=== PATIENT | female | born 1990 | race Caucasian/White ===

== ENCOUNTER 2017-02-10 12:26 | Emergency (ER) | payer SELFPAY ==
[~2017-02-10] VITALS: Ht 157.5 cm; Wt 90.5 kg
[2017-02-10 12:39] VITALS: Ht 157.5 cm; Wt 90.5 kg
[2017-02-10] MEDS ORDERED: ACETAMINOPHEN 325 MG TAB PO STA (13:10)
[2017-02-10 14:00] LABS: ADD UMIC YES; UR ASCORBIC ACID NEGATIVE (NEGATIVE); UR BACTERIA FEW /HPF (NONE SEEN); UR BILIRUBIN (Dip) NEGATIVE (NEGATIVE); UR BLOOD (Dip) 2+ mg/dL (NEGATIVE); UR CLARITY TURBID (CLEAR); UR COLOR YELLOW (YELLOW); UR GLUCOSE (Dip) NEGATIVE (NEGATIVE); UR KETONES (Dip) NEGATIVE (NEGATIVE); UR LEUKOCYTE ESTERASE (Dip) 3+ Leu/ul (NEGATIVE); UR MUCUS FEW /HPF (NONE SEEN); UR NITRITE (Dip) NEGATIVE (NEGATIVE); UR RBC 83 /HPF (0-5); UR SPECIFIC GRAVITY (Dip) 1.024 (1.003-1.030); UR SQUAMOUS EPITHELIAL CELL FEW /HPF (FEW); UR TOTAL PROTEIN (Dip) 2+ mg/dl (NEGATIVE); UR UROBILINOGEN (Dip) NEGATIVE (NEGATIVE)
--- NOTE | 2017-02-10 14:26 | RADRPT ---
PROCEDURE: US Pelvis. CLINICAL INDICATION: Pelvic pain TECHNIQUE: Multiple sonographic images of the pelvis were obtained utilizing a transabdominal and endovaginal technique. The images were reviewed on a PACS workstation. COMPARISON: None available FINDINGS: Uterus: Normal in size, contour and echogenicity with no evidence for myometrial masses. Size is est imated at 7.5 x 3.3 x 4.0 cm. Cervix: No abnormalities of significance are seen. Endometrium: Normal in thickness; 8.3 mm. Right ovary / adnexa: Not visualized Left ovary/adnexa: Normal in size estimated at 2.2 x 2.2 x 2.9 cm. No evidence for solid masses, no rmal blood flow on Doppler interrogation. Cul-de-sac: No evidence of free fluid. RPTAT: HSM IMPRESSION: Right ovary not visualize. Otherwise, Unremarkable pelvic ultrasound. .Chandrakant Palma MD, Date Time Electronically viewed and signed by .Chandrakant Palma MD, on 02/10/2017 14:25 .M/
[2017-02-10] MEDS ORDERED: NITR-58 PO (14:29)
--- NOTE | 2017-02-10 14:36 | ERD ---
ER Documentation Chief Complaint Date/Time DATE: 02/10/17 TIME: 14:30 Chief Complaint lower mid-ap x 3 days, fever at home, denies n/v/d HPI Patient is a 26-year-old female with no past medical history who presents to the ED with suprapubic pain and pelvic pain and urinary urgency and frequency 3 days. Denies vaginal bleeding. Last menstrual period was 1 month ago. Denies dysuria. Denies fever or chills or back pain. Denies abdominal pain, nausea, vomiting or diarrhea. No other complaints. ROS All systems reviewed and are negative except as per history of present illness. Medications Home Meds Active Scripts Nitrofurantoin Monohyd Macrocr* (Macrobid*) 100 Mg Capsr, 100 MG PO BID for 5 Days, CAP Prov:BJORN NG PA-C 02/10/17 Allergies Allergies: Coded Allergies: No Known Allergy (Unverified , 02/10/17) PMhx/Soc History of Surgery: No Anesthesia Reaction: No Hx Neurological Disorder: No Hx Respiratory Disorders: No Hx Cardiac Disorders: No Hx Psychiatric Problems: No Hx Miscellaneous Medical Probl: No Hx Alcohol Use: Yes Hx Substance Use: No Hx Tobacco Use: Yes Smoking Status: Current every day smoker FmHx Family History: No coronary disease, No diabetes, No other Physical Exam Vitals Vital Signs Date Time Temp Pulse Resp B/P Pulse Ox O2 Delivery O2 Flow Rate FiO2 02/10/17 12:39 97.6 87 20 160/107 100 Physical Exam GENERAL: Well-developed, well-nourished female. Appears in no acute distress. HEAD: Normocephalic, atraumatic. EYES: Pupils are equally reactive bilaterally. EOMs grossly intact. No conjunctival erythema. ENT: Moist mucous membranes. No uvula deviation. No kissing tonsils. No exudates. NECK: Supple. No lymphadenopathy or thyromegaly. No meningismus. negative kernig. negative brudinski. LUNG: Clear to auscultation bilaterally. No rhonchi, wheezing, rales or coarse breath sounds. HEART: Regular rate and rhythm. No murmurs, rubs or gallops. ABDOMEN: No scars, ecchymosis or rashes noted. Soft, nontender, and nondistended. Positive bowel sounds in all four quadrants. No rebound tenderness , no guarding. (-) McBurneys point tenderness. No CVA tenderness. BACK: No midline tenderness. Extremities: Equal pulses bilaterally. No peripheral clubbing, cyanosis or edema. No unilateral leg swelling. NEUROLOGIC: Alert and oriented. Moving all four extremities. 5/5 strength in all extremities. Normal speech. Steady gait. SKIN: Normal color. Warm and dry. No rashes or lesions. Capillary refill < 2 seconds Results 24 hrs Laboratory Tests Test 02/10/17 13:25 Urine Color YELLOW Urine Clarity TURBID Urine pH 6.0 Urine Specific Industry 1.024 Urine Ketones NEGATIVEmg/dL Urine Nitrite NEGATIVEmg/dL Urine Bilirubin NEGATIVEmg/dL Urine Urobilinogen NEGATIVEmg/dL Urine Leukocyte Esterase 3+Alyssa/ul Urine Microscopic RBC 83/HPF Urine Microscopic WBC > 182/HPF Urine Squamous Epithelial Cells FEW/HPF Urine Bacteria FEW/HPF Urine Mucus FEW/HPF Urine Hemoglobin 2+mg/dL Urine Glucose NEGATIVEmg/dL Urine Total Protein 2+mg/dl Current Medications Medications (Trade) Dose Ordered Sig/Anurag Route PRN Reason Start Time Stop Time Status Last Admin Dose Admin Acetaminophen (Tylenol Tab) 650 mg ONCE STAT PO 02/10/17 13:10 02/10/17 13:12 DC 02/10/17 13:27 Procedures/MDM ER COURSE: I kept the patient and/or family informed of laboratory and diagnostic imaging results throughout the emergency room course. MEDICAL DECISION MAKING: This is a 26-year-old female who presents with suprapubic pain, urinary urgency 3 days. Vital signs were reviewed. Patient is afebrile. Patient is not hypoxic. Patient is nontoxic or ill-appearing. Her urine shows 3+ leukocytes with no nitrites. Pelvic ultrasound within normal limits. Patient has cystitis. Low suspicion for pyelonephritis, septic or obstructive stone, nephrolithiasis. Low suspicion for ovarian torsion, PID, tuboovarian abscess, ectopic , bowel obstruction, pyelonephritis, appendicitis, cervicitis , septic , molar , HELLP syndrome, preeclampsia, eclampsia, placenta previa, placenta abruptia. DISCHARGE: At this time, patient is stable for discharge and outpatient management with no new complaints during the ER course. Patient was sent home with macrobid and copy of imaging study. Patient will be discharged home with instructions to recheck for new or worsening symptoms such as fever, nausea, weakness, LOC and to follow up with primary care in the next 1-2 days. Patient was advised to return to the ER for any new or worsening symptoms. Plan was discussed and patient and/or family understands and agrees. Home instructions were given. Departure Diagnosis: Primary Impression: Cystitis Condition: Stable Patient Instructions: Bladder Infection (Cystitis), Female (Child) Additional Instructions: Call your primary care doctor TOMORROW for an appointment during the next 1-2 days.See the doctor sooner or return here if your condition worsens before your appointment time. BJORN NG PA-C Feb 10, 2017 14:36
== END 2017-02-10 14:55 | disposition home or self-care (01) ==
LOC: FTE 12:26
DX: N30.90 Cystitis, unspecified without hematuria (principal); F17.210 Nicotine dependence, cigarettes, uncomplicated; R10.2 Pelvic and perineal pain
CPT/HCPCS: 76830; 76856; 81001

== ENCOUNTER 2017-05-02 12:08 | Emergency (ER) | payer SELFPAY ==
[~2017-05-02] VITALS: Ht 157.5 cm; Wt 92.5 kg
[~2017-05-02 12:08] MED LIST: NITR-58 PO
[2017-05-02 12:32] VITALS: Ht 157.5 cm; Wt 92.5 kg
[2017-05-02] MEDS ORDERED: BEN25 PO (15:03)
[2017-05-02] MEDS ORDERED: TR1B60 TOP (15:03)
--- NOTE | 2017-05-02 15:16 | ERD ---
ER Documentation Chief Complaint Chief Complaint rash around neck and abdomen x 4 days HPI 27 yo female comes in with a left lateral neck rash and left hip rash for 4 days. Pt has had a pruritic rash with some swelling. No shortness of breath, chest pain or shortness of breath. ROS All systems reviewed and are negative except as per history of present illness. Medications Home Meds Active Scripts Triamcinolone Acetonide (Triamcinolone Acetonide) 0.1% - 60 Ml Lotion, 1 APPLIC TOP BID, #1 BOTTLE Prov:ANOOP MARTINEZ PA-C 05/02/17 Diphenhydramine Hcl* (Benadryl*) 25 Mg Cap, 25 MG PO Q6, #20 CAP Prov:ANOOP MARTINEZ PA-C 05/02/17 Nitrofurantoin Monohyd Macrocr* (Macrobid*) 100 Mg Capsr, 100 MG PO BID for 5 Days, CAP Prov:BJORN NG PA-C 02/10/17 Allergies Allergies: Coded Allergies: No Known Allergy (Unverified , 02/10/17) PMhx/Soc History of Surgery: No Anesthesia Reaction: No Hx Neurological Disorder: No Hx Respiratory Disorders: No Hx Cardiac Disorders: No Hx Psychiatric Problems: No Hx Miscellaneous Medical Probl: No Hx Alcohol Use: Yes Hx Substance Use: No Hx Tobacco Use: Yes Physical Exam Vitals Vital Signs Date Time Temp Pulse Resp B/P Pulse Ox O2 Delivery O2 Flow Rate FiO2 05/02/17 12:32 98.9 82 16 142/94 100 Physical Exam Const: well appearing in no acute distress Head: Atraumatic Eyes: Normal Conjunctiva ENT: Normal External Ears, Nose and Mouth. Neck: Full range of motion..~ No meningismus. Resp: Clear to auscultation bilaterally Cardio: Regular rate and rhythm, no murmurs Abd: Soft, non tender, non distended. Normal bowel sounds Skin: hives on left lateral neck and left hip Back: No midline or flank tenderness Ext: No cyanosis, or edema Neur: Awake and alert Psych: Normal Mood and Affect Procedures/MDM 27-year-old female comes in with contact dermatitis, the patient will be given Benadryl and topical triamcinolone. Avoid irritating factors, she believes it might of been a new lotion that she use. She has no trouble breathing, signs of infection. Departure Diagnosis: Primary Impression: Contact dermatitis Condition: Good Patient Instructions: Contact Dermatitis ANOOP MARTINEZ PA-C May 02, 2017 15:16
== END 2017-05-02 15:34 | disposition home or self-care (01) ==
LOC: FTE 12:08
DX: L25.9 Unspecified contact dermatitis, unspecified cause (principal); Z87.891 Personal history of nicotine dependence
CPT/HCPCS: 99283

== ENCOUNTER 2018-07-16 18:48 | Emergency (ER) | payer SELFPAY ==
[~2018-07-16] VITALS: Ht 154.9 cm; Wt 69.9 kg
[~2018-07-16 18:48] MED LIST changes: +BEN25 PO; +TR1B60 TOP
[2018-07-16 19:15] VITALS: Ht 154.9 cm; Wt 69.9 kg
[2018-07-16] MEDS ORDERED: KETOROLAC 60 MG INJ IM STA (21:35)
[2018-07-16] MEDS ORDERED: AMOXICILLIN/CLAV 875 MG TAB PO ONE (22:00)
[2018-07-16] MEDS ORDERED: METHYLPREDNISOLONE ACET 40 MG/ML 1 ML IM ONE ×2 (22:00)
[2018-07-16] MEDS ORDERED: DEXAMETHASONE 10 MG/ML 1 ML INJ IM ONE (22:00)
[2018-07-16] MEDS ORDERED: IBUP800T48 PO (22:41)
[2018-07-16] MEDS ORDERED: TRAM50TA2 PO (22:41)
[2018-07-16] MEDS ORDERED: AMOX1TAB10 PO (22:44)
[2018-07-16 22:48] VITALS: BP 159/103; PULSE 95; RESP 20
[2018-07-16] MEDS ORDERED: HYDROCODONE/APAP (5/325) TAB PO ONE (23:00)
[2018-07-16] MEDS ORDERED: HYDROCODONE/APAP (10/325) TAB PO ONE (23:00)
--- NOTE | 2018-07-17 04:14 | ERD ---
ER Documentation Chief Complaint Chief Complaint LEFT LOWER JAW PAIN/ SWELLING X'S 1 DAY HPI 28 year-old [female] coming in today with Chief Complaint: Dental pain History of Present Illness: Patient coming in today with complaint of left sided face swelling, and dental pain. Patient with known dental problem. Unable to get in with dentist at this time. Review of systems: All systems were reviewed and are negative except for what is indicated in the history of present illness. Past Medical History: [Negative for hypertension, diabetes or other medical problems] Social History: Positive tobacco use, positive marijuana use Medications: [None] Allergies: [NKDA] Social Concerns: Denies ROS All systems reviewed and are negative except as per history of present illness. Medications Home Meds Active Scripts Amoxicillin/Potassium Clav (Amox-Clav 875-125 mg Tablet) 875-125 mg Tab, 1 TAB PO BID for dental infection for 10 Days, #20 TAB Prov:HONORIO VO NP 07/16/18 Ibuprofen* (Motrin*) 800 Mg Tab, 800 MG PO Q6H for INFLAMMATION/PAIN, #30 TAB Prov:HONORIO VO NP 07/16/18 Tramadol HCl (Tramadol HCl) 50 Mg Tablet, 50 MG PO Q6 PRN for PAIN LEVEL 7-10, #5 TAB Prov:HONORIO VO NP 07/16/18 Triamcinolone Acetonide (Triamcinolone Acetonide) 0.1% - 60 Ml Lotion, 1 APPLIC TOP BID, #1 BOTTLE Prov:ANOOP MARTINEZ PA-C 05/02/17 Diphenhydramine Hcl* (Benadryl*) 25 Mg Cap, 25 MG PO Q6, #20 CAP Prov:ANOOP MARTINEZ PA-C 05/02/17 Nitrofurantoin Monohyd Macrocr* (Macrobid*) 100 Mg Capsr, 100 MG PO BID for 5 Days, CAP Prov:BJORN NG PA-C 02/10/17 Allergies Allergies: Coded Allergies: No Known Allergy (Unverified , 02/10/17) PMhx/Soc History of Surgery: No Anesthesia Reaction: No Hx Neurological Disorder: No Hx Respiratory Disorders: No Hx Cardiac Disorders: Yes (HTN) Hx Psychiatric Problems: No Hx Miscellaneous Medical Probl: No Hx Alcohol Use: Yes Hx Substance Use: Yes (MARIJUANA DAILY) Hx Tobacco Use: Yes Smoking Status: Current every day smoker FmHx Family History: diabetes; No coronary disease Physical Exam Vitals Vital Signs Date Temp Pulse Resp B/P (MAP) Pulse Ox O2 O2 Flow FiO2 Time Delivery Rate 07/16/18 99.6 95 20 159/103 100 Room Air 22:48 (121) 07/16/18 99.5 89 19 164/103 100 Room Air 22:42 (123) 07/16/18 99.3 107 19 185/113 100 19:15 (137) Physical Exam Const: No acute distress Head: Atraumatic, swelling noted to left lower jaw Eyes: Normal Conjunctiva ENT: Normal External Ears, Nose and Mouth. Tender to palpation to tooth #19, there is a tenderness to palpation on gumline. Neck: Full range of motion. No meningismus. No lymphadenopathy. Resp: Clear to auscultation bilaterally Cardio: Regular rate and rhythm, no murmurs Abd: Soft, non tender, non distended. Normal bowel sounds Skin: No petechiae or rashes Back: No midline or flank tenderness Ext: No cyanosis, or edema Neur: Awake and alert Psych: Normal Mood and Affect Results 24 hrs Laboratory Tests Test 07/16/18 22:00 POC Beta HCG, Qualitative NEGATIVE Current Medications Medications Dose Sig/Anurag Start Time Status Last (Trade) Ordered Route PRN Stop Time Admin Dose Reason Admin 6 mg ONCE ONCE 07/16/18 DC 07/16/18 Dexamethasone IM 22:00 22:05 (Decadron) 07/16/18 22:01 Ketorolac 60 mg ONCE STAT 07/16/18 DC 07/16/18 Tromethamine IM 21:35 22:04 (Toradol) 07/16/18 21:37 60 mg ONCE ONCE 07/16/18 DC Methylprednis IM 22:00 olone 07/16/18 22:00 Acetate (Depo-Medrol 40 Mg/ml 1 ml) 875 mg ONCE ONCE 07/16/18 DC 07/16/18 Amoxicillin/ PO 22:00 22:10 Clavulanate 07/16/18 22:01 Potassium (Augmentin) 60 mg ONCE ONCE 07/16/18 DC 07/16/18 Methylprednis IM 22:00 22:11 olone 07/16/18 22:01 Acetate (Depo-Medrol 40 Mg/ml 1 ml) 1 tab ONCE ONCE 07/16/18 DC Acetaminophen PO 23:00 / 07/16/18 23:00 Hydrocodone Bitart (Dalton (10/325)) 1 tab ONCE ONCE 07/16/18 DC 07/16/18 Acetaminophen PO 23:00 22:44 / 07/16/18 23:00 Hydrocodone Bitart (Dalton (5/325)) Procedures/MDM Patient with complaint of dental pain ED course includes a thorough examination and history. ED course includes pain medication for pain control and steroids for swelling and inflammation. Low suspicion for Everardo's angina, or life-threatening medical emergency. Otherwise healthy patient presenting with constellation of symptoms likely representing uncomplicated dental infection as characterized by history, physical exam findings. Patient reassessment at 2230. Patient reporting pain has decreased, vital signs have improved more particularly blood pressure. Will give patient 1 dose of Dalton before discharge as well as first dose of antibiotics. No respiratory distress, otherwise relatively well appearing and nontoxic. Patient educated on diagnoses, prescriptions, follow-up care, return precautions. Strict return precautions given for worsening condition; questions answered discharge. Disposition for discharge with followup in 1-2 days with PCP/clinic, preferably dentist. Departure Diagnosis: Primary Impression: Dental infection Condition: Stable Patient Instructions: Tooth Abscess Referrals: COMMUNITY CLINICS YOU HAVE RECEIVED A MEDICAL SCREENING EXAM AND THE RESULTS INDICATE THAT YOU DO NOT HAVE A CONDITION THAT REQUIRES URGENT TREATMENT IN THE EMERGENCY DEPARTMENT. FURTHER EVALUATION AND TREATMENT OF YOUR CONDITION CAN WAIT UNTIL YOU ARE SEEN IN YOUR DOCTORS OFFICE WITHIN THE NEXT 1-2 DAYS. IT IS YOUR RESPONSIBILITY TO MAKE AN APPOINTMENT FOR FOLOW-UP CARE. IF YOU HAVE A PRIMARY DOCTOR --you should call your primary doctor and schedule an appointment IF YOU DO NOT HAVE A PRIMARY DOCTOR YOU CAN CALL OUR PHYSICIAN REFERRAL HOTLINE AT IF YOU CAN NOT AFFORD TO SEE A PHYSICIAN YOU CAN CHOSE FROM THE FOLLOWING [facility] [address] [facility] [address] [facility] [address] [facility] [address] [facility] [address] [facility]. [facility] [address] [facility]. [facility] YOU HAVE RECEIVED A MEDICAL SCREENING EXAM AND THE RESULTS INDICATE THAT YOU DO NOT HAVE A CONDITION THAT REQUIRES URGENT TREATMENT IN THE EMERGENCY DEPARTMENT. FURTHER EVALUATION AND TREATMENT OF YOUR CONDITION CAN WAIT UNTIL YOU ARE SEEN IN YOUR DOCTORS OFFICE WITHIN THE NEXT 1-2 DAYS. IT IS YOUR RESPONSIBILITY TO MAKE AN APPOINTMENT FOR FOLOW-UP CARE. IF YOU HAVE A PRIMARY DOCTOR --you should call your primary doctor and schedule and appointment IF YOU DO NOT HAVE A PRIMARY DOCTOR YOU CAN CALL OUR PHYSICIAN REFERRAL HOTLINE AT . IF YOU CAN NOT AFFORD TO SEE A PHYSICIAN YOU CAN CHOSE FROM THE FOLLOWING [facility]: [facility] [address] [place] [address] [facility] [address] [place] [address] [facility] [address] [place] [address] [facility] ([facility] walk in clinic) Additional Instructions: Call your primary care doctor TOMORROW for an appointment during the next 1-2 days.See the doctor sooner or return here if your condition worsens before your appointment time. Call dentist tomorrow so you can get appointment lindsey. acetaminophen and ibuprofen for pain. if you can not get appointment with dentist this, then go to clinic for reevaluation of symptoms to ensure you are getting better. HONORIO VO NP Jul 17, 2018 04:13
== END 2018-07-16 22:50 | disposition home or self-care (01) ==
LOC: FTE 18:48
DX: K04.7 Periapical abscess without sinus (principal); I10 Essential (primary) hypertension; F17.210 Nicotine dependence, cigarettes, uncomplicated
CPT/HCPCS: 81025; 96372; 99284; J1100; J1885; J1030